=== PATIENT | female | born 1960 | race Caucasian/White ===

== ENCOUNTER 2019-12-21 17:40 | Emergency (ER) | payer MEDICAID ==
[~2019-12-21] VITALS: Ht 165.1 cm; Wt 72.6 kg
[2019-12-21 17:53] VITALS: BP 131/109
== END 2019-12-21 19:07 | disposition home or self-care (01) ==
LOC: ER 17:40
DX: S61.257D Open bite of left little finger without damage to nail, subsequent encounter (principal); W54.0XXD Bitten by dog, subsequent encounter; F17.210 Nicotine dependence, cigarettes, uncomplicated